=== PATIENT | male | born 2000 | race Two or more races ===

== ENCOUNTER 2023-09-02 15:36 | Emergency (ER) | payer OTHER ==
[~2023-09-02] VITALS: Ht 180.3 cm; Wt 73.0 kg
[2023-09-02] MEDS ORDERED: IBUPROFEN 400 MG TABLET ONE (16:12)
[2023-09-02] MEDS ORDERED: ACETAMINOPHEN 500 MG TABLET ONE (16:13)
[2023-09-02] MEDS: ACETAMINOPHEN 500 MG TABLET PO ONE (16:14)
[2023-09-02] MEDS: IBUPROFEN 400 MG TABLET PO ONE (16:14)
[2023-09-02] MEDS ORDERED: NEOMY/BACITRA/POLYMYXIN B OINT UD PACKET TP ONE (17:30)
--- NOTE | 2023-09-02 17:36 | NUR ---
PT IS IN ROOM #2A. DR MONDRAGON EVALUATED THE PT.
[2023-09-02] MEDS: NEOMY/BACITRA/POLYMYXIN B OINT UD PACKET TP ONE (17:37)
--- NOTE | 2023-09-02 17:55 | NUR ---
PT WAS D/C'D TO HOME BY DR MONDRAGON. D/C INSTRUCTIONS GIVEN TO THE PT BY DR MONDRAGON.
[2023-09-02 17:56] VITALS: BP 133/78; TEMP 98.2; O2SAT 98
== END 2023-09-02 17:57 | disposition home or self-care (01) ==
LOC: ER 15:37
DX: S80.11XA Contusion of right lower leg, initial encounter (principal); S20.212A Contusion of left front wall of thorax, initial encounter; V89.2XXA Person injured in unspecified motor-vehicle accident, traffic, initial encounter; Y93.89 Activity, other specified; Y92.89 Other specified places as the place of occurrence of the external cause; Y99.8 Other external cause status
CPT/HCPCS: 71045; A4606; A4663; A9150